=== PATIENT | female | born 1980 | race American Indian/Alaskan Native ===

== ENCOUNTER 2017-12-13 18:59 | Emergency (ER) | payer MEDICAID ==
[2017-12-13 20:20] LABS: Basophils # (Auto) 0.1 K/mm3 (0.0-0.1); Basophils % (Auto) 0.5 % (0.0-1.8); Eosinophils # (Auto) 0.1 K/mm3 (0.0-0.4); Eosinophils % (Auto) 1.1 % (0.0-4.3); Hematocrit 38.1 % (30.3-42.9); Hemoglobin 12.2 gm/dl (10.1-14.3); Lymphocytes # (Auto) 2.8 K/mm3 (1.2-5.4); Lymphocytes % (Auto) 27.8 % (13.4-35.0); Mean Corpuscular HGB Conc 32 % (30-34); Mean Corpuscular Hemoglobin 27 pg (28-32); Mean Corpuscular Volume 84 fl (79-97); Monocytes # (Auto) 0.7 K/mm3 (0.0-0.8); Monocytes % (Auto) 6.5 % (0.0-7.3); Platelet Count 203 K/mm3 (140-440); Red Blood Count 4.55 M/mm3 (3.65-5.03); Red Cell Distribution Width 14.3 % (13.2-15.2)
[2017-12-13 20:36] LABS: Alanine Aminotransferase 11 units/L (7-56); BUN/Creatinine Ratio 11; Blood Urea Nitrogen 8 mg/dL (7-17); Calcium 8.8 mg/dL (8.4-10.2); Hemolysis Index 6
[2017-12-13 21:06] LABS: Bacteria,Urine 1+ /HPF (Negative); Bilirubin,Urine NEG (Negative); Blood,Urine SM (Negative); Color,Urine Yellow (Yellow); Mucus,Urine 2+ /HPF; Nitrite,Urine NEG (Negative)
[2017-12-14 02:26] VITALS: BP 137/78
[2017-12-14] MEDS ORDERED: PYRIDIUM PO ONE (02:27)
[2017-12-14] MEDS ORDERED: MACROBID PO ONE (02:27)
--- NOTE | 2017-12-14 02:31 | Emergency Department Report ---
HPI - General Chief Complaint: Abdominal Pain Time Seen by Provider: 12/14/17 02:15 - HPI HPI: This is a 37-year-old Pakistani female presents to the emergency department with a complaint of a 2 day history of some lower abdominal and/or pelvic discomfort , dysuria and today she noticed a small amount of brownish discharge. She denies any vaginal bleeding, fever, nausea, vomiting. She denies any past medical history. No recent travel or sick contacts at home. She has not taken anything for her symptoms prior to presentation. She is sexually active and does not always use protection but has one single partner for the past 7-1/2 years. ED Past Medical Hx - Past Medical History Previous Medical History?: No - Surgical History Past Surgical History?: Yes Additional Surgical History: c-sec X1 - Social History Smoking Status: Current Every Day Smoker Substance Use Type: None - Medications Home Medications: Home Medications Medication Instructions Recorded Confirmed Last Taken Type Nitrofurantoin Monohyd/M-Cryst 100 mg PO BID #14 capsule 12/14/17 Unknown Rx [Macrobid 100 mg Capsule] metroNIDAZOLE [Flagyl] 500 mg PO Q12HR #14 tab 12/14/17 Unknown Rx ED Review of Systems ROS: Stated complaint: ABD PAIN Other details as noted in HPI Comment: All other systems reviewed and negative Constitutional: denies: chills, fever Eyes: denies: eye pain, eye discharge, vision change ENT: denies: ear pain, throat pain Respiratory: denies: cough, shortness of breath, wheezing Cardiovascular: denies: chest pain, palpitations Gastrointestinal: abdominal pain (suprapubic). denies: vomiting Genitourinary: dysuria, discharge Musculoskeletal: denies: joint swelling, arthralgia Skin: denies: rash, lesions Neurological: denies: headache, weakness, paresthesias Physical Exam - Physical Exam Vital Signs: Vital Signs 12/13/17 12/14/17 12/14/17 19:48 02:25 02:26 Temperature 98.2 F 98.2 F Pulse Rate 90 79 Respiratory 20 16 Rate Blood Pressure 117/82 Blood Pressure 137/78 [Left] O2 Sat by Pulse 100 99 Oximetry Physical Exam: GENERAL: The patient is well-developed well-nourished. HENT: Normocephalic. Atraumatic. Patient has moist mucous membranes. EYES: Extraocular motions are intact. Pupils equal reactive to light bilaterally. NECK: Supple. No meningitic signs are noted. There is no adenopathy noted. CHEST/LUNGS: Clear to auscultation. There is no respiratory distress noted. HEART/CARDIOVASCULAR: Regular. There is no tachycardia. There is no murmur. ABDOMEN: Abdomen is soft, nontender. No guarding or rebound tenderness. Patient has normal bowel sounds. There is no abdominal distention. SKIN: Skin is warm and dry. : There is a moderate amount of malodorous yellowish discharge. No vaginal or labial lesions seen. NEURO: The patient is awake, alert, and oriented. The patient is cooperative. The patient has no focal neurologic deficits. The patient has normal speech and gait. MUSCULOSKELETAL: There is no tenderness or deformity. There is no limitation range of motion. There is no evidence of acute injury. ED Course Vital Signs 12/13/17 12/14/17 12/14/17 19:48 02:25 02:26 Temperature 98.2 F 98.2 F Pulse Rate 90 79 Respiratory 20 16 Rate Blood Pressure 117/82 Blood Pressure 137/78 [Left] O2 Sat by Pulse 100 99 Oximetry ED Medical Decision Making - Lab Data Result diagrams: 12/13/17 20:01 12/13/17 20:01 - Medical Decision Making Patient's physical exam was mostly unremarkable except for some is discharged on. She really did not have any reproducible abdominal or pelvic pain or any signs of being uncomfortable during the pelvic examination. The pelvic exam was done with nurse tech in the room. The wet prep was positive for both bacterial vaginosis and trichomoniasis. Urinalysis showed a urinary tract infection which is consistent with her complaints. She was sent home with both Flagyl and Macrobid. She was encouraged to follow up with primary care and OB/ [facility]. She will return to the ER with any worsening of her symptoms or any acute distress. - Differential Diagnosis BV, trichomoniasis, UTI, ovarian cysts, Critical Care Time: No Critical care attestation.: If time is entered above; I have spent that time in minutes in the direct care of this critically ill patient, excluding procedure time. ED Disposition Clinical Impression: Bacterial vaginosis, Trichomonas infection UTI (urinary tract infection) Qualifiers: Urinary tract infection type: acute cystitis Hematuria presence: without hematuria Qualified Code(s): N30.00 - Acute cystitis without hematuria Disposition: DC- TO HOME OR SELFCARE Is pt being admited?: No Condition: Stable Instructions: Bacterial Vaginosis (ED), Trichomoniasis (ED), Urinary Tract Infection in Women (ED) Additional Instructions: Please follow up with a primary care physician and/or an [facility]. Take the antibiotics as prescribed. As we discussed, the Flagyl/metronidazole cannot be mixed with any amount of alcohol or else you will develop severe abdominal pain , nausea and vomiting. Return to the emergency Department with any worsening of your symptoms or any acute distress. Prescriptions: metroNIDAZOLE [Flagyl] 500 mg PO Q12HR #14 tab Nitrofurantoin Monohyd/M-Cryst [Macrobid 100 mg Capsule] 100 mg PO BID #14 capsule Referrals: Joanna CHRISTIANSON [Other] - 3-5 Days [facility] [Provider Group] - 3-5 Days [facility] [Provider Group] - 3-5 Days [facility] [Outside] - 3-5 Days Forms: STI Treatment and Prevention Time of Disposition: 06:23
== END 2017-12-14 06:48 | disposition home or self-care (01) ==
LOC: ED 18:59
DX: A59.01 Trichomonal vulvovaginitis (principal); N30.00 Acute cystitis without hematuria; F17.200 Nicotine dependence, unspecified, uncomplicated; Z88.8 Allergy status to other drugs, medicaments and biological substances
CPT/HCPCS: 36415; 80053; 81001; 84703; 85025; 87210; 87591; 99284

== ENCOUNTER 2018-12-29 14:39 | Emergency (ER) | payer BC, MEDICAID ==
--- NOTE | 2018-12-29 15:44 | Emergency Department Report ---
Blank Doc - Documentation Documentation: This is a 38 y.o. female that presents with lower abdominal pressure x 5 days. Patient states "it feel like my bladder is full". This initial assessment diagnostic orders/clinical plan/treatment(s) is/are subject to change based on patient's health status, clinical progression and re- assessment by fellow clinical providers in the ED. Further treatment and workup at subsequent clinical providers discretion. Patient/guardians urged not to elope from ED s their condition may be serious if not clinically assessed and managed. Initial orders include: 1- Labs Fast track for further evaluation.
[2018-12-29 16:37] LABS: Bilirubin,Urine NEG (Negative); Blood,Urine NEG (Negative); Color,Urine Yellow (Yellow); Protein,Urine <15 mg/dL mg/dL (Negative); Urobilinogen,Urine < 2.0 mg/dL (<2.0)
[2018-12-29 16:38] LABS: HCG Qualitative,Urine Negative (Negative)
--- NOTE | 2018-12-29 17:20 | Emergency Department Report ---
ED Abdominal Pain HPI - General Chief Complaint: Urogenital-Female Stated Complaint: ABD PAIN Time Seen by Provider: 12/29/18 15:42 Source: patient Mode of arrival: Ambulatory Limitations: No Limitations - History of Present Illness Initial Comments: This is a 38-year-old female here reports lower abdominal pain that began this morning. States that she has some vaginal discharge but it was clear and did not have any odor and she is not really worried about STD. Denies any nausea vomiting or diarrhea. Denies any back pain. Denies any fever or chills. Denies any urinary burning frequency or urgency. Pain is 8/10 and cramping. She also reports that she is feeling bloated and lasts bowel movement was 2 days ago. Last menstrual cycle was 12/17/2018. No pain medicine prior to coming to emergency room. Denies any cough or congestion. Denies any shortness of breath or chest pain. No alleviating or exacerbating factors for pain. MD Complaint: abdominal pain -: This morning Location: suprapubic Radiation: none Migration to: no migration Severity: severe Severity scale (0 -10): 8 Quality: cramping Consistency: intermittent Improves With: nothing Worsens With: nothing Context: other (constipation) Associated Symptoms: constipation. denies: nausea, vomiting, diarrhea, fever, chills, dysuria, hematemesis, hematochezia, melena, hematuria, anorexia, syncope Treatments Prior to Arrival: other (none) - Related Data LMP Date: 12/17/18 Previous Rx's Medication Instructions Recorded Last Taken Type Nitrofurantoin Monohyd/M-Cryst 100 mg PO BID #14 capsule 12/14/17 Unknown Rx [Macrobid 100 mg Capsule] metroNIDAZOLE [Flagyl] 500 mg PO Q12HR #14 tab 12/14/17 Unknown Rx Bisacodyl [Dulcolax] 10 mg PO DAILY 1 Days #2 tab 12/29/18 Unknown Rx Docusate Sodium [Colace] 100 mg PO BID 30 Days #60 capsule 12/29/18 Unknown Rx Magnesium Citrate [Citrate of 300 ml PO ONCE 1 Days #1 bottle 12/29/18 Unknown Rx Magnesia] Allergies Allergy/AdvReac Type Severity Reaction Status Date / Time iodine Allergy Hives Verified 12/13/17 19:52 ED Review of Systems ROS: Stated complaint: ABD PAIN Other details as noted in HPI Constitutional: denies: chills, fever ENT: denies: throat pain, congestion Respiratory: denies: cough, wheezing Cardiovascular: denies: chest pain, palpitations Gastrointestinal: abdominal pain, constipation. denies: nausea, vomiting, diarrhea, hematemesis, melena, hematochezia Genitourinary: discharge (clear discharge that she has had before without any odor), other (abdominal bloating). denies: urgency, dysuria, frequency, hematuria, abnormal menses, dyspareunia Musculoskeletal: denies: back pain, joint swelling, arthralgia, myalgia Skin: denies: rash Neurological: denies: headache, numbness, paresthesias, abnormal gait, vertigo ED Past Medical Hx - Past Medical History Previous Medical History?: Yes Additional medical history: Anemia with and had a blood transfusion - Surgical History Past Surgical History?: Yes Additional Surgical History: c-sec X1 - Family History Family history: hypertension - Social History Smoking Status: Never Smoker Substance Use Type: Alcohol - Medications Home Medications: Home Medications Medication Instructions Recorded Confirmed Last Taken Type Nitrofurantoin Monohyd/M-Cryst 100 mg PO BID #14 capsule 12/14/17 Unknown Rx [Macrobid 100 mg Capsule] metroNIDAZOLE [Flagyl] 500 mg PO Q12HR #14 tab 12/14/17 Unknown Rx Bisacodyl [Dulcolax] 10 mg PO DAILY 1 Days #2 tab 12/29/18 Unknown Rx Docusate Sodium [Colace] 100 mg PO BID 30 Days #60 capsule 12/29/18 Unknown Rx Magnesium Citrate [Citrate of 300 ml PO ONCE 1 Days #1 bottle 12/29/18 Unknown Rx Magnesia] ED Physical Exam - General Limitations: No Limitations General appearance: alert, in no apparent distress - Head Head exam: Present: atraumatic, normocephalic, normal inspection - Eye Eye exam: Present: normal appearance, PERRL, EOMI Pupils: Present: normal accommodation - ENT ENT exam: Present: normal exam, normal orophraynx, mucous membranes moist - Neck Neck exam: Present: normal inspection, full ROM. Absent: tenderness, lymphadenopathy - Respiratory Respiratory exam: Present: normal lung sounds bilaterally. Absent: respiratory distress, chest wall tenderness - Cardiovascular Cardiovascular Exam: Present: regular rate, normal rhythm, normal heart sounds - GI/Abdominal GI/Abdominal exam: Present: soft, normal bowel sounds. Absent: distended, tenderness, guarding, rebound, rigid, organomegaly, mass - Extremities Exam Extremities exam: Present: normal inspection, full ROM, normal capillary refill, other (No cce. + 2 pulses in all extremities, no neurovascular compromise). Absent: tenderness, pedal edema, joint swelling, calf tenderness - Back Exam Back exam: Present: normal inspection, full ROM, other (ambulates without any difficulties). Absent: tenderness, CVA tenderness (R), CVA tenderness (L), muscle spasm, paraspinal tenderness, vertebral tenderness, rash noted - Neurological Exam Neurological exam: Present: alert, oriented X3, normal gait, reflexes normal. Absent: motor sensory deficit - Psychiatric Psychiatric exam: Present: normal affect, normal mood - Skin Skin exam: Present: warm, dry, intact, normal color. Absent: rash ED Course Vital Signs 12/29/18 15:32 Temperature 98.8 F Pulse Rate 87 Respiratory 18 Rate Blood Pressure 129/88 Blood Pressure 129/88 [Right] O2 Sat by Pulse 100 Oximetry - Reevaluation(s) Reevaluation #1: 12/29/18 20:32 Patient received Toradol 60 mg IM emergency room or relief of pain but reports she still feels bloated. X-ray reports fecal matter is suggestive of cons tipation ED Medical Decision Making - Lab Data Result diagrams: 12/29/18 17:34 12/29/18 17:34 Lab Results 12/29/18 12/29/18 12/29/18 Range/Units 16:04 17:34 17:34 WBC 9.1 (4.5-11.0) K/mm3 RBC 4.19 (3.65-5.03) M/mm3 Hgb 11.1 (10.1-14.3) gm/dl Hct 34.8 (30.3-42.9) % MCV 83 (79-97) fl MCH 27 L (28-32) pg MCHC 32 (30-34) % RDW 14.8 (13.2-15.2) % Plt Count 191 (140-440) K/mm3 Lymph % (Auto) 34.6 (13.4-35.0) % [place] % (Auto) 6.8 (0.0-7.3) % Eos % (Auto) 2.8 (0.0-4.3) % Baso % (Auto) 1.2 (0.0-1.8) % Lymph # 3.2 (1.2-5.4) K/mm3 [place] # 0.6 (0.0-0.8) K/mm3 Eos # 0.3 (0.0-0.4) K/mm3 Baso # 0.1 (0.0-0.1) K/mm3 Seg Neutrophils % 54.6 (40.0-70.0) % Seg Neutrophils # 5.0 (1.8-7.7) K/mm3 Sodium 141 (137-145) mmol/L Potassium 3.9 (3.6-5.0) mmol/L Chloride 105.8 (98-107) mmol/L Carbon Dioxide 28 (22-30) mmol/L Anion Gap 11 mmol/L BUN 11 (7-17) mg/dL Creatinine 0.8 (0.7-1.2) mg/dL Estimated GFR > 60 ml/min BUN/Creatinine Ratio 14 % Glucose 80 (65-100) mg/dL Calcium 9.1 (8.4-10.2) mg/dL Total Bilirubin (0.1-1.2) mg/dL Direct Bilirubin (0-0.2) mg/dL Indirect Bilirubin mg/dL AST (5-40) units/L ALT (7-56) units/L Alkaline Phosphatase (35-129) units/L Total Protein (6.3-8.2) g/dL Albumin (3.9-5) g/dL Albumin/Globulin Ratio % Lipase 85 H (13-60) units/L Urine Color Yellow (Yellow) Urine Turbidity Cloudy (Clear) Urine pH 7.0 (5.0-7.0) Ur Specific Only 1.020 (1.003-1.030) Urine Protein <15 mg/dl (Negative) mg/dL Urine Glucose (UA) Neg (Negative) mg/dL Urine Ketones Neg (Negative) mg/dL Urine Blood Neg (Negative) Urine Nitrite Neg (Negative) Urine Bilirubin Neg (Negative) Urine Urobilinogen < 2.0 (<2.0) mg/dL Ur Leukocyte Esterase Neg (Negative) Urine WBC (Auto) 1.0 (0.0-6.0) /HPF Urine RBC (Auto) 1.0 (0.0-6.0) /HPF U Epithel Cells (Auto) 4.0 (0-13.0) /HPF Urine HCG, Qual Negative (Negative) 12/29/18 Range/Units 17:34 WBC (4.5-11.0) K/mm3 RBC (3.65-5.03) M/mm3 Hgb (10.1-14.3) gm/dl Hct (30.3-42.9) % MCV (79-97) fl MCH (28-32) pg MCHC (30-34) % RDW (13.2-15.2) % Plt Count (140-440) K/mm3 Lymph % (Auto) (13.4-35.0) % [place] % (Auto) (0.0-7.3) % Eos % (Auto) (0.0-4.3) % Baso % (Auto) (0.0-1.8) % Lymph # (1.2-5.4) K/mm3 [place] # (0.0-0.8) K/mm3 Eos # (0.0-0.4) K/mm3 Baso # (0.0-0.1) K/mm3 Seg Neutrophils % (40.0-70.0) % Seg Neutrophils # (1.8-7.7) K/mm3 Sodium (137-145) mmol/L Potassium (3.6-5.0) mmol/L Chloride (98-107) mmol/L Carbon Dioxide (22-30) mmol/L Anion Gap mmol/L BUN (7-17) mg/dL Creatinine (0.7-1.2) mg/dL Estimated GFR ml/min BUN/Creatinine Ratio % Glucose (65-100) mg/dL Calcium (8.4-10.2) mg/dL Total Bilirubin 0.20 (0.1-1.2) mg/dL Direct Bilirubin < 0.2 (0-0.2) mg/dL Indirect Bilirubin 0.0 mg/dL AST 20 (5-40) units/L ALT 19 (7-56) units/L Alkaline Phosphatase 54 (35-129) units/L Total Protein 7.2 (6.3-8.2) g/dL Albumin 4.3 (3.9-5) g/dL Albumin/Globulin Ratio 1.5 % Lipase (13-60) units/L Urine Color (Yellow) Urine Turbidity (Clear) Urine pH (5.0-7.0) Ur Specific Only (1.003-1.030) Urine Protein (Negative) mg/dL Urine Glucose (UA) (Negative) mg/dL Urine Ketones (Negative) mg/dL Urine Blood (Negative) Urine Nitrite (Negative) Urine Bilirubin (Negative) Urine Urobilinogen (<2.0) mg/dL Ur Leukocyte Esterase (Negative) Urine WBC (Auto) (0.0-6.0) /HPF Urine RBC (Auto) (0.0-6.0) /HPF U Epithel Cells (Auto) (0-13.0) /HPF Urine HCG, Qual (Negative) - Radiology Data Radiology results: report reviewed X-ray abdominal 2 views dictated by radiologist and report reviewed by myself. Please see details below Findings [facility] [address] [place] [address] XRay Report Signed Patient: SVEN WELLS MR#: [id number] : 1980 Acct:[id number] Age/Sex: 38 / F ADM Date: 12/29/18 Loc: ED Attending Dr: Ordering Physician: JAYRO PATHAK Date of Service: 12/29/18 Procedure(s): XR abdomen 2V Accession Number(s): [id number] cc: JAYRO PATHAK Fluoro Time In Minutes: FINAL REPORT EXAM: XR ABDOMEN 2V HISTORY: constipation TECHNIQUE: 2 views of the abdomen PRIORS: None. FINDINGS: Slight spinal curvature with right apex at thoracolumbar junction Pneumoperitoneum: None visible. Abnormal fluid levels: None. Visceromegaly: None visible. Mass: None visible. Abnormal calcification: Vascular phleboliths in pelvis Intestinal gas pattern: Within normal limits Stool volume: Slightly increased from cecum to rectum may reflect constipation IMPRESSION: Nonspecific bowel gas pattern without intestinal distention. Slightly increased feces from cecum to rectum may correspond with history of constipation Transcribed By: ANIRUDH Dictated By: ROHAN TOWNSEND MD Electronically Authenticated By: ROHAN TOWNSEND MD Signed Date/Time: 12/29/181823 DD/ 22 TD/TT: 12/29/181822 - Medical Decision Making This is a 38-year-old female here report that she is having bloated and has not had a bowel movement in 2 days and also complaining of lower abdominal cramping.. She mentions that she has some clear vaginal discharge. Reports no concern for STD. Vaginal discharge without any odor. Please see my notes for details. Labs: CBC, CMP, urinalysis and test is negative. Lipase mildly elevated. X-ray 2 view of the abdomen: Slightly increased feces from cecum to rectum may correspond with history of constipation . Assessment/plan Abdominal cramping and bloating-patient is constipated and will be sent home on medication to relieve constipation. She was given Toradol 60 mg IM emergency room which relieved her pain. Elevated lipase-referred to primary care to have repeat lab work in 1 week. Her lipase is at 85. She does not have any upper abdominal pain and denies any history of of all abuse, liver disease or pancreatitis. I discussed laboratory report, x-ray report on the diagnosis and treatment plan the patient. Her vital signs are stable she is afebrile and she feels better. I discuss the need for her to follow up with her primary care for increase in her lipase level and she voiced understanding. Patient discharged home in stable condition with prescription for mag citrate and Dulcolax tablets. - Differential Diagnosis bowel obstruction, constipation, UTI, Critical care attestation.: If time is entered above; I have spent that time in minutes in the direct care of this critically ill patient, excluding procedure time. ED Disposition Clinical Impression: Abdominal cramping, Elevated lipase Constipation Qualifiers: Constipation type: other constipation type Qualified Code(s): K59.09 - Other constipation Disposition: DC-01 TO HOME OR SELFCARE Is pt being admited?: No Does the pt Need Aspirin: No Condition: Stable Instructions: High Fiber Diet (ED), Constipation (ED), Amylase/Cellulase/Hyoscyamine/Lipase/Phenyltoloxamine/Protease (By mouth) Additional Instructions: Please follow up with primary care doctor in 3 days and he will have not and you need to have a lipase level drawn for monitoring. The discharge instruction paperwork for diet that is high in fiber prevent constipation Take Colace for stool softener and increase her fluid intake Take magnesium citrate and Dulcolax when you go home. If you condition worsens, return to the emergency room I will also refer you to art manager for management of constipation and lipase elevation. [facility] - 01/01/19 Forms: Work/School Release Form(ED)
[2018-12-29] MEDS ORDERED: TORADOL IM ONE (17:22)
[2018-12-29 17:47] LABS: Basophils # (Auto) 0.1 K/mm3 (0.0-0.1); Basophils % (Auto) 1.2 % (0.0-1.8); Eosinophils # (Auto) 0.3 K/mm3 (0.0-0.4); Eosinophils % (Auto) 2.8 % (0.0-4.3); Hematocrit 34.8 % (30.3-42.9); Hemoglobin 11.1 gm/dl (10.1-14.3); Lymphocytes # (Auto) 3.2 K/mm3 (1.2-5.4); Lymphocytes % (Auto) 34.6 % (13.4-35.0); Mean Corpuscular HGB Conc 32 % (30-34); Mean Corpuscular Volume 83 fl (79-97); Monocytes # (Auto) 0.6 K/mm3 (0.0-0.8); Monocytes % (Auto) 6.8 % (0.0-7.3); Platelet Count 191 K/mm3 (140-440); Red Blood Count 4.19 M/mm3 (3.65-5.03); Red Cell Distribution Width 14.8 % (13.2-15.2)
[2018-12-29 18:00] LABS: BUN/Creatinine Ratio 14; Blood Urea Nitrogen 11 mg/dL (7-17); Calcium 9.1 mg/dL (8.4-10.2); Hemolysis Index 2
[2018-12-29 18:18] LABS: Alanine Aminotransferase 19 units/L (7-56); Albumin 4.3 g/dL (3.9-5)
[2018-12-29 18:22] LABS: Bilirubin,Direct < 0.2 mg/dL (0-0.2)
--- NOTE | 2018-12-29 18:24 | XRay Report ---
FINAL REPORT EXAM: XR ABDOMEN 2V HISTORY: constipation TECHNIQUE: 2 views of the abdomen PRIORS: None. FINDINGS: Slight spinal curvature with right apex at thoracolumbar junction Pneumoperitoneum: None visible. Abnormal fluid levels: None. Visceromegaly: None visible. Mass: None visible. Abnormal calcification: Vascular phleboliths in pelvis Intestinal gas pattern: Within normal limits Stool volume: Slightly increased from cecum to rectum may reflect constipation IMPRESSION: Nonspecific bowel gas pattern without intestinal distention. Slightly increased feces from cecum to rectum may correspond with history of constipation
[2018-12-29 20:59] VITALS: BP 132/81
== END 2018-12-29 20:59 | disposition home or self-care (01) ==
LOC: ED 14:39
DX: K59.09 Other constipation (principal); R74.8 Abnormal levels of other serum enzymes
CPT/HCPCS: 36415; 74019; 80048; 80076; 81001; 81025; 83690; 85025; 96372; 99284; J1885

== ENCOUNTER 2019-07-14 12:13 | Emergency (ER) | payer SELFPAY ==
[2019-07-14 12:39] VITALS: BP 131/89
--- NOTE | 2019-07-14 12:40 | Event Note ---
ED Screening Note Date of service: 07/14/19 Time: 12:36 ED Screening Note: 38 y presents with sore throat with pain with swallowing x 3 am this morning This initial assessment/diagnostic orders/clinical plan/treatment(s) is/are subject to change based on patients health status, clinical progression and re- assessment by fellow clinical providers in the ED. Further treatment and workup at subsequent clinical providers discretion. Patient/guardian urged not to elope from the ED as their condition may be serious if not clinically assessed and managed. Initial orders include: rapid strep
--- NOTE | 2019-07-14 14:48 | Emergency Department Report ---
ED ENT HPI - General Chief complaint: Sore Throat Stated complaint: SORE THROAT Time Seen by Provider: 07/14/19 12:35 Source: patient Mode of arrival: Ambulatory Limitations: No Limitations - History of Present Illness Initial comments: Patient is a 38-year-old female with no significant past medical history. Patient presented to the ER complaining of sore throat after 1 episode of vomiting. Patient denied any fever or chills. No difficulty breathing or swallowing. MD complaint: sore throat -: This morning Severity: mild - Related Data Previous Rx's Medication Instructions Recorded Last Taken Type Nitrofurantoin Monohyd/M-Cryst 100 mg PO BID #14 capsule 12/14/17 Unknown Rx [Macrobid 100 mg Capsule] metroNIDAZOLE [Flagyl] 500 mg PO Q12HR #14 tab 12/14/17 Unknown Rx Bisacodyl [Dulcolax] 10 mg PO DAILY 1 Days #2 tab 12/29/18 Unknown Rx Docusate Sodium [Colace] 100 mg PO BID 30 Days #60 capsule 12/29/18 Unknown Rx Magnesium Citrate [Citrate of 300 ml PO ONCE 1 Days #1 bottle 12/29/18 Unknown Rx Magnesia] Ketorolac [Toradol] 10 mg PO Q6H PRN #12 tablet 03/29/19 Unknown Rx traMADol [Ultram] 50 mg PO Q6HR PRN #12 tablet 03/29/19 Unknown Rx Allergies Allergy/AdvReac Type Severity Reaction Status Date / Time iodine Allergy Hives Verified 12/13/17 19:52 ED Dental HPI - General Chief complaint: Sore Throat Stated complaint: SORE THROAT Time Seen by Provider: 07/14/19 12:35 Source: patient Mode of arrival: Ambulatory Limitations: No Limitations - Related Data Previous Rx's Medication Instructions Recorded Last Taken Type Nitrofurantoin Monohyd/M-Cryst 100 mg PO BID #14 capsule 12/14/17 Unknown Rx [Macrobid 100 mg Capsule] metroNIDAZOLE [Flagyl] 500 mg PO Q12HR #14 tab 12/14/17 Unknown Rx Bisacodyl [Dulcolax] 10 mg PO DAILY 1 Days #2 tab 12/29/18 Unknown Rx Docusate Sodium [Colace] 100 mg PO BID 30 Days #60 capsule 12/29/18 Unknown Rx Magnesium Citrate [Citrate of 300 ml PO ONCE 1 Days #1 bottle 12/29/18 Unknown Rx Magnesia] Ketorolac [Toradol] 10 mg PO Q6H PRN #12 tablet 03/29/19 Unknown Rx traMADol [Ultram] 50 mg PO Q6HR PRN #12 tablet 03/29/19 Unknown Rx Allergies Allergy/AdvReac Type Severity Reaction Status Date / Time iodine Allergy Hives Verified 12/13/17 19:52 ED Review of Systems ROS: Stated complaint: SORE THROAT Other details as noted in HPI Comment: All other systems reviewed and negative Constitutional: denies: chills, fever ENT: throat pain Cardiovascular: denies: chest pain, palpitations Gastrointestinal: vomiting (x1). denies: abdominal pain, nausea Genitourinary: denies: dysuria Musculoskeletal: denies: back pain Neurological: denies: headache, weakness ED Past Medical Hx - Past Medical History Previous Medical History?: Yes Additional medical history: Anemia with and had a blood transfusion - Surgical History Additional Surgical History: c-sec X1 1990 - Social History Smoking Status: Never Smoker Substance Use Type: None - Medications Home Medications: Home Medications Medication Instructions Recorded Confirmed Last Taken Type Nitrofurantoin Monohyd/M-Cryst 100 mg PO BID #14 capsule 12/14/17 Unknown Rx [Macrobid 100 mg Capsule] metroNIDAZOLE [Flagyl] 500 mg PO Q12HR #14 tab 12/14/17 Unknown Rx Bisacodyl [Dulcolax] 10 mg PO DAILY 1 Days #2 tab 12/29/18 Unknown Rx Docusate Sodium [Colace] 100 mg PO BID 30 Days #60 capsule 12/29/18 Unknown Rx Magnesium Citrate [Citrate of 300 ml PO ONCE 1 Days #1 bottle 12/29/18 Unknown Rx Magnesia] Ketorolac [Toradol] 10 mg PO Q6H PRN #12 tablet 03/29/19 Unknown Rx traMADol [Ultram] 50 mg PO Q6HR PRN #12 tablet 03/29/19 Unknown Rx ED Physical Exam - General Limitations: No Limitations General appearance: alert, in no apparent distress - Head Head exam: Present: atraumatic, normocephalic, normal inspection - Eye Eye exam: Present: normal appearance - ENT ENT exam: Present: normal exam, normal orophraynx, mucous membranes moist - Neck Neck exam: Present: normal inspection, full ROM. Absent: tenderness, meningismus, lymphadenopathy, thyromegaly - Respiratory Respiratory exam: Present: normal lung sounds bilaterally - Cardiovascular Cardiovascular Exam: Present: regular rate, normal rhythm, normal heart sounds - GI/Abdominal GI/Abdominal exam: Present: soft, normal bowel sounds. Absent: distended, tenderness, guarding, rebound, rigid, organomegaly, mass, bruit, pulsatile mass, hernia - Extremities Exam Extremities exam: Present: normal inspection, full ROM, normal capillary refill - Back Exam Back exam: Present: normal inspection, full ROM. Absent: CVA tenderness (R), CVA tenderness (L), muscle spasm, paraspinal tenderness, vertebral tenderness - Neurological Exam Neurological exam: Present: alert, oriented X3, CN II-XII intact, normal gait, reflexes normal - Psychiatric Psychiatric exam: Present: normal mood - Skin Skin exam: Present: warm, intact, normal color ED Course Vital Signs 07/14/19 12:36 Temperature 98.5 F Pulse Rate 77 Respiratory 18 Rate Blood Pressure 131/89 O2 Sat by Pulse 97 Oximetry ED Medical Decision Making - Medical Decision Making Patient is a 38-year-old female with no significant past medical history. Alexander anton presented to the ER complaining of sore throat after 1 episode of vomiting. Patient denied any fever or chills. No difficulty breathing or swallowing. Strepitus is negative. is negative. Critical care attestation.: If time is entered above; I have spent that time in minutes in the direct care of this critically ill patient, excluding procedure time. ED Disposition Clinical Impression: Sore throat Disposition: DC-01 TO HOME OR SELFCARE Is pt being admited?: No Condition: Stable Instructions: Strep Throat (ED) Referrals: PRIMARY CARE, [Referring] - 3-5 Days
[2019-07-14 16:47] LABS: HCG Qualitative,Urine Negative (Negative)
== END 2019-07-14 17:30 | disposition home or self-care (01) ==
LOC: ED 12:13
DX: J02.9 Acute pharyngitis, unspecified (principal); Z79.899 Other long term (current) drug therapy; Z86.2 Personal history of diseases of the blood and blood-forming organs and certain disorders involving the immune mechanism
CPT/HCPCS: 81025; 87116; 87430

== ENCOUNTER 2022-03-03 10:52 | Emergency (ER) | payer SELFPAY ==
--- NOTE | 2022-03-03 13:26 | Emergency Department Report ---
- General Chief Complaint: Fever Stated Complaint: BODY ACHE/SORE THROAT Source: patient Mode of arrival: Ambulatory Limitations: No Limitations - History of Present Illness Initial Comments: Patient is a 41-year-old -Citizen Of [place] female with no past medical history presents to the ED with complaint of acute onset persistent nasal and sinus congestion, frontal sinus pressure, sore throat, mild dry cough and diffuse body aches and pains with subjective fever and chills for the last 2 days. Patient states that she just returned from a trip in [place] and that in the last 24 hours her symptoms have worsened. Patient denies dizziness, syncope, chest pain, shortness of breath, nausea and vomiting or diarrhea, abdominal pain, dysuria, urinary frequency and urgency or back pain. MD Complaint: fever, cough, sore throat, rhinorrhea, nasal congestion, sinus pain -: Sudden, days(s) (2) Severity: severe Severity scale (0 -10): 7 Quality: sharp, aching Consistency: constant Improves With: nothing Worsens With: nothing Context: sick contacts Associated Symptoms: denies other symptoms, fever, chills, myalgias, rhinorrhea, nasal congestion, sore throat, cough. denies: chest pain, shortness of breath, abdominal pain, nausea, vomiting, diarrhea, rash, right sweats, weight loss, epistaxis, hoarseness, ear pain, other Treatments Prior to Arrival: "cold medicine" - Related Data Previous Rx's Medication Instructions Recorded Last Taken Type Nitrofurantoin Monohyd/M-Cryst 100 mg PO BID #14 capsule 12/14/17 Unknown Rx [Macrobid 100 mg Capsule] metroNIDAZOLE [Flagyl] 500 mg PO Q12HR #14 tab 12/14/17 Unknown Rx Docusate Sodium [Colace] 100 mg PO BID 30 Days #60 capsule 12/29/18 Unknown Rx Magnesium Citrate [Citrate of 300 ml PO ONCE 1 Days #1 bottle 12/29/18 Unknown Rx Magnesia] bisacodyL [Dulcolax] 10 mg PO DAILY 1 Days #2 tab 12/29/18 Unknown Rx Ketorolac [Toradol] 10 mg PO Q6H PRN #12 tablet 03/29/19 Unknown Rx traMADoL [Ultram] 50 mg PO Q6HR PRN #12 tablet 03/29/19 Unknown Rx Azithromycin [Zithromax Z-MO] 250 mg PO DAILY #6 tab 03/03/22 Unknown Rx Cetirizine HCl [Zyrtec 10mg tab] 10 mg PO DAILY #30 tab 03/03/22 Unknown Rx Ibuprofen [Motrin] 800 mg PO Q8HR PRN #30 tablet 03/03/22 Unknown Rx methylPREDNISolone [Medrol 4MG 4 mg PO DAILY #21 tab 03/03/22 Unknown Rx DOSEPAK (21 tabs)] Allergies Allergy/AdvReac Type Severity Reaction Status Date / Time iodine Allergy Hives Verified 12/13/17 19:52 ED Review of Systems ROS: Stated complaint: BODY ACHE/SORE THROAT Other details as noted in HPI Constitutional: chills, fever, malaise Eyes: denies: eye pain, eye discharge, vision change ENT: throat pain, congestion. denies: ear pain Respiratory: cough. denies: shortness of breath, wheezing Cardiovascular: denies: chest pain, palpitations Endocrine: no symptoms reported Gastrointestinal: denies: abdominal pain, nausea, diarrhea Genitourinary: denies: urgency, dysuria, discharge Musculoskeletal: arthralgia, myalgia. denies: back pain, joint swelling Skin: denies: rash, lesions Neurological: headache. denies: weakness, paresthesias Psychiatric: denies: anxiety, depression Hematological/Lymphatic: denies: easy bleeding, easy bruising ED Past Medical Hx - Past Medical History Previous Medical History?: Yes Additional medical history: Anemia with and had a blood transfusion - Surgical History Past Surgical History?: Yes Additional Surgical History: c-sec X1 1990 - Social History Smoking Status: Never Smoker - Medications Home Medications: Home Medications Medication Instructions Recorded Confirmed Last Taken Type Nitrofurantoin Monohyd/M-Cryst 100 mg PO BID #14 capsule 12/14/17 Unknown Rx [Macrobid 100 mg Capsule] metroNIDAZOLE [Flagyl] 500 mg PO Q12HR #14 tab 12/14/17 Unknown Rx Docusate Sodium [Colace] 100 mg PO BID 30 Days #60 capsule 12/29/18 Unknown Rx Magnesium Citrate [Citrate of 300 ml PO ONCE 1 Days #1 bottle 12/29/18 Unknown Rx Magnesia] bisacodyL [Dulcolax] 10 mg PO DAILY 1 Days #2 tab 12/29/18 Unknown Rx Ketorolac [Toradol] 10 mg PO Q6H PRN #12 tablet 03/29/19 Unknown Rx traMADoL [Ultram] 50 mg PO Q6HR PRN #12 tablet 03/29/19 Unknown Rx Azithromycin [Zithromax Z-MO] 250 mg PO DAILY #6 tab 03/03/22 Unknown Rx Cetirizine HCl [Zyrtec 10mg tab] 10 mg PO DAILY #30 tab 03/03/22 Unknown Rx Ibuprofen [Motrin] 800 mg PO Q8HR PRN #30 tablet 03/03/22 Unknown Rx methylPREDNISolone [Medrol 4MG 4 mg PO DAILY #21 tab 03/03/22 Unknown Rx DOSEPAK (21 tabs)] ED Physical Exam - General Limitations: No Limitations General appearance: alert, in no apparent distress - Head Head exam: Present: atraumatic, normocephalic, normal inspection - Eye Eye exam: Present: normal appearance, PERRL, EOMI Pupils: Present: normal accommodation - ENT ENT exam: Present: mucous membranes moist, TM's normal bilaterally, normal external ear exam, other (Mildly erythematous oropharynx; grossly congested nasal passages) - Neck Neck exam: Present: normal inspection, full ROM. Absent: tenderness, lymphadenopathy - Respiratory Respiratory exam: Present: normal lung sounds bilaterally. Absent: respiratory distress, wheezes, rales, rhonchi, chest wall tenderness, accessory muscle use, decreased breath sounds, prolonged expiratory - Cardiovascular Cardiovascular Exam: Present: regular rate, normal rhythm. Absent: systolic murmur, diastolic murmur, rubs, gallop - GI/Abdominal GI/Abdominal exam: Present: soft, normal bowel sounds. Absent: tenderness, guarding, rebound, hyperactive bowel sounds, hypoactive bowel sounds, organomegaly - Extremities Exam Extremities exam: Present: normal inspection, full ROM, normal capillary refill. Absent: tenderness - Back Exam Back exam: Present: normal inspection, full ROM. Absent: tenderness, CVA tenderness (R), CVA tenderness (L), muscle spasm, paraspinal tenderness, vertebral tenderness - Neurological Exam Neurological exam: Present: alert, oriented X3, CN II-XII intact, normal gait, reflexes normal - Psychiatric Psychiatric exam: Present: normal affect, normal mood - Skin Skin exam: Present: warm, dry, intact, normal color. Absent: rash ED Course Vital Signs 03/03/22 11:59 Temperature 99.6 F Pulse Rate 82 Respiratory 18 Rate Blood Pressure 114/82 [Left] O2 Sat by Pulse 100 Oximetry ED Medical Decision Making - Medical Decision Making This is a 41-year-old -Citizen Of [place] female with no past medical history presents to the ED with complaint of acute onset persistent nasal and sinus congestion, frontal sinus pressure, sore throat, mild dry cough and diffuse body aches and pains with subjective fever and chills for the last 2 days. Patient states that she just returned from a trip in [place] and that in the last 24 hours her symptoms have worsened. In the ED, patient is alert and oriented x3 and is not in any distress. Patient will discharge home on medications and advised to follow-up with her primary care physician in 7 to 10 days for reevaluation or return to the ED immediately if symptoms get worse. - Differential Diagnosis URI; Pharyngitis; Bronchitis; Sinusitis Critical care attestation.: If time is entered above; I have spent that time in minutes in the direct care of this critically ill patient, excluding procedure time. ED Disposition Clinical Impression: Acute upper respiratory infection, Acute bacterial sinusitis Acute pharyngitis Qualifiers: Pharyngitis/tonsillitis etiology: other specified organisms Qualified Code(s): J02.8 - Acute pharyngitis due to other specified organisms Acute bronchitis Qualifiers: Bronchitis organism: other organism Qualified Code(s): J20.8 - Acute bronchitis due to other specified organisms Disposition: 01 HOME / SELF CARE / HOMELESS Is pt being admited?: No Does the pt Need Aspirin: No Condition: Stable Instructions: Sinusitis, Adult, [id number], Upper Respiratory Infection, Adult, [id number], Pharyngitis, [id number], Acute Bronchitis (ED), Acute Bronchitis, Adult, [id number] Additional Instructions: Take medication with food, drink plenty of fluids and follow-up with your primary care physician in 7 to 10 days for reevaluation. Return to the ED immediately if symptoms get worse with Prescriptions: methylPREDNISolone [Medrol 4MG DOSEPAK (21 tabs)] 4 mg PO DAILY #21 tab Ibuprofen [Motrin] 800 mg PO Q8HR PRN #30 tablet PRN Reason: pain and fever Azithromycin [Zithromax Z-MO] 250 mg PO DAILY #6 tab Cetirizine HCl [Zyrtec 10mg tab] 10 mg PO DAILY #30 tab Referrals: [facility] [Provider Group] - 7-10 days Forms: Work/School Release Form(ED) Time of Disposition: 13:26 Print Language: MAURITIAN
[2022-03-03 14:12] VITALS: BP 120/80
== END 2022-03-03 14:11 | disposition home or self-care (01) ==
LOC: ED 10:52
DX: J06.9 Acute upper respiratory infection, unspecified (principal); J32.9 Chronic sinusitis, unspecified; B96.89 Other specified bacterial agents as the cause of diseases classified elsewhere; J20.9 Acute bronchitis, unspecified; Z98.890 Other specified postprocedural states; Z88.6 Allergy status to analgesic agent; Z79.899 Other long term (current) drug therapy
CPT/HCPCS: 99282